=== PATIENT | male | born 1960 | race Caucasian/White ===

== ENCOUNTER 2019-12-09 10:31 | Emergency (ER) | payer OTHER ==
[~2019-12-09] VITALS: Ht 180.3 cm; Wt 90.9 kg
[2019-12-09 10:36] VITALS: TEMP 97.2
[2019-12-09 11:33] VITALS: BP 137/95; PULSE 75
== END 2019-12-09 11:33 | disposition home or self-care (01) ==
LOC: COL.ER 10:31
DX: S61.512A Laceration without foreign body of left wrist, initial encounter (principal); W29.8XXA Contact with other powered hand tools and household machinery, initial encounter; Y92.009 Unspecified place in unspecified non-institutional (private) residence as the place of occurrence of the external cause